=== PATIENT | male | born 1955 | race Caucasian/White ===

== ENCOUNTER 2018-01-24 16:05 | Emergency (ER) | payer OTHER, MEDICAID ==
[2018-01-24 16:10] VITALS: Ht 170.2 cm
[2018-01-24 17:53] LABS: CALCIUM 9.2 mg/dL (8.5-10.1); CHLORIDE SERUM 104 mmol/L (98-107); CREATININE SERUM 0.7 mg/dL (0.7-1.3); GFR1 > 60 mL/min; GLUCOSE SERUM 89 mg/dL (74-106); POTASSIUM SERUM 3.4 mmol/L (3.5-5.1); SODIUM SERUM 136 mmol/L (136-145)
[2018-01-24 17:56] LABS: PLATELET COUNT 451 x10^3mcL (130-400); RED CELL DISTRIBUTION WIDTH 23.1 % (11.5-14.5)
[2018-01-24 17:59] LABS: ALBUMIN 3.8 g/dL (3.4-5.0); ALKALINE PHOSPHATASE 57 U/L (46-116); ALT/SGPT 19 U/L (16-63); AST/SGOT 23 U/L (15-37); BILIRUBIN TOTAL 0.46 mg/dL (0.20-1.00); CHOLESTEROL 171 mg/dL (<200); HDL CHOLESTEROL 87 mg/dL (40-60); LIPASE 164 IU/L (73-393); TOTAL PROTEIN, SERUM 7.8 g/dL (6.4-8.2); TRIGLYCERIDES 52 mg/dL (<150)
[2018-01-24 18:04] LABS: BAND NEUTROPHIL 0 % (0-10); BASOPHIL 0 % (0-2); MONOCYTE 4 % (0-7); SEGMENTED NEUTROPHILS 41 % (37-75); rbc morphology (normal/abnorm) ABNORMAL (NORMAL)
[2018-01-24 18:05] LABS: burr cell (echinocyte) 1+
[2018-01-24 18:07] LABS: T3 TOTAL 1.11 ng/mL
[2018-01-24 18:33] LABS: FREE T4 1.19 ng/dL (0.76-1.46); T4(THYROXINE) 8.2 ug/dL (4.7-13.3)
[2018-01-24 18:47] VITALS: BP 136/70
== END 2018-01-24 18:47 | disposition home or self-care (01) ==
LOC: ED 16:05
PROVIDERS: Specialist
DX: K21.9 Gastro-esophageal reflux disease without esophagitis (principal); D64.89 Other specified anemias; M19.90 Unspecified osteoarthritis, unspecified site; Z88.0 Allergy status to penicillin
CPT/HCPCS: 36415; 83880; 84439